=== PATIENT | female | born 1970 | race African-American/Black ===

== ENCOUNTER 2022-06-06 07:40 | Emergency (ER) | payer BC ==
[2022-06-06] MEDS ORDERED: Albuterol 2.5 MG/0.5 ML NEB ONE ×2 (09:01→09:56)
[2022-06-06] MEDS ORDERED: Ipratropium/Albuterol 3 ML NEB ONE (09:01)
[2022-06-06] MEDS ORDERED: predniSONE 20 MG TAB ONE (09:01)
[2022-06-06] MEDS ORDERED: Magnesium 2 GM/50 ML BAG (IN WATER) ONE (10:47)
[2022-06-06 10:54] LABS: #Basophils 0.1 thou/uL (0.0-0.2); #Eosinphils 0.2 thou/uL (0.0-0.7); #Lymphocytes 2.3 thou/uL (1.20-3.40); #Monocytes 0.4 thou/uL (0.11-0.59); #Neutrophils 2.2 thou/uL (1.40-6.50); %Basophils 1.4 % (0.0-1.0); %Eosinophils 3.4 % (0.0-10.0); %Lymphocytes 44.7 % (21.0-51.0); %Monocytes 7.5 % (0.0-10.0); Hemoglobin 13.2 g/dL (12.0-16.0); Mean Corpuscular HGB CONC 31.5 g/dL (32.0-36.0); Mean Corpuscular Hemoglobin 29.9 pg (27.0-31.0); Mean Platelet Volume 7.5 fL (7.4-10.4); Platelet Count 250 10x3/uL (130-400); Red Blood Cell (RBC) Count 4.41 mill/uL (4.20-5.40); White Blood Cell (WBC) Count 5.1 10x3/uL (4.8-10.8)
[2022-06-06 11:20] LABS: ALT (SGPT) 9 U/L (8-55); AST (SGOT) 19 U/L (5-34); Albumin 4.3 g/dL (3.5-5.0); Alkaline Phosphatase 90 U/L (40-110); Anion Gap 15 mmol/L (10-20); BUN (Urea Nitrogen) 10 mg/dL (9.8-20.1); Bilirubin, Total 0.5 mg/dL (0.2-1.2); Calc. Creatinine Clearance 0 mL/min (70-130); Calcium 9.4 mg/dL (7.8-10.44); Carbon Dioxide 24 mmol/L (22-29); Chloride 106 mmol/L (98-107); Estimated GFR 88; Globulin 2.7 g/dL (2.4-3.5); Glucose 108 mg/dL (70-105); Potassium 3.6 mmol/L (3.5-5.1); Sodium 141 mmol/L (136-145)
== END 2022-06-06 12:07 | disposition home or self-care (01) ==
LOC: ERS 07:40
DX: J44.1 Chronic obstructive pulmonary disease with (acute) exacerbation (principal)
CPT/HCPCS: 36415; 71045; 80053; 84484; 85025; 93005; 94640; 94760; 96365; J3475; J7512; J7611; J7620

== ENCOUNTER 2023-03-14 09:16 | Outpatient (CLI) | payer OTHER | END 2023-03-14 09:17 | disposition home or self-care (01) | LOC: DTY/OP 09:16 | PROVIDERS: ATTEND Family Medicine | DX: R63.0 Anorexia (principal) | CPT/HCPCS: 97802 ==

== ENCOUNTER 2024-04-16 11:01 | Outpatient (CLI) | payer OTHER | END 2024-04-16 11:02 | disposition home or self-care (01) | LOC: BICRAD 11:01 | PROVIDERS: ATTEND Family Medicine | DX: M25.511 Pain in right shoulder (principal); M54.41 Lumbago with sciatica, right side; M19.011 Primary osteoarthritis, right shoulder | CPT/HCPCS: 72100 ==